=== PATIENT | female | born 1980 | race Caucasian/White ===

== ENCOUNTER → 2022-11-02 12:51 | Outpatient (CLI) | payer OTHER, SELFPAY ==
--- NOTE | 2022-11-02 12:55 | DI.MG.S_ITS ---
BILATERAL DIGITAL DIAGNOSTIC MAMMOGRAM 3D/2D: 11/02/2022 CLINICAL: Right breast lump. Comparison is made to exam dated: 11/02/[address] [facility]. Both breasts are heterogeneously dense, which may obscure small masses (category c / 51-75% glandular tissue). No significant masses, calcifications, or other findings are seen in either breast. No mass in the region of the palpable abnormality. (No mass was seen on proceeding targeted ultrasound). IMPRESSION: NEGATIVE There is no mammographic evidence of malignancy. A 1 year screening mammogram is recommended. Exam findings were conveyed to the patient. Patient is advised to monitor for significant change. Clinical follow-up as needed. Based on the Tyrer Cuzick model (a risk assessment model) the patient's lifetime risk is 10.7% and her 10 year risk is 1.3%. According to the ACR, ACS, and NCCN guidelines, an annual breast MRI exam along with mammogram is recommended if the patient's lifetime risk is 20% or greater. This exam was interpreted at Station ID: [id number]. NOTE: For mammograms, a report in lay terms will be sent to the patient. Approximately 15% of breast malignancies will not be visualized mammographically. In the management of a palpable breast mass, a negative mammogram must not discourage biopsy of a clinically suspicious lesion. Electronically Signed By: Boris Bar M.D. [facility] [place]/:11/02/2022 14:12:29 letter sent: Normal Exam ACR BI-RADS Category 1: Negative 3341F
--- NOTE | 2022-11-02 12:55 | DI.US.S_ITS ---
LIMITED ULTRASOUND OF RIGHT BREAST: 11/02/2022 CLINICAL: Palpable right breast lump. . No prior exams were available for comparison. Color flow and real-time ultrasound of the right breast 4 o'clock region were performed. Bocanegra scale images of the real-time examination were reviewed. No significant abnormalities were seen sonographically in the right breast. IMPRESSION: INCOMPLETE: NEEDS ADDITIONAL IMAGING EVALUATION No sonographic evidence of malignancy at the palpable site. No galactocele. Patient is currently . Exam findings were conveyed to the patient. Patient is advised to monitor for significant change. Clinical follow-up as needed. A mammogram is recommended and will immediately follow. This exam was interpreted at Station ID: [id number]. Electronically Signed By: Boris Bar M.D. [facility] [place]/:11/02/2022 13:26:42 letter sent: Additional Imaging Needed Ultrasound BI-RADS: 0 Indeterminate
== END ==
PROVIDERS: PCP Physician Assistant; Referring Provider Physician Assistant; Visit Provider Physician Assistant
DX: O92.29 Other disorders of breast associated with pregnancy and the puerperium (principal); N63.12 Unspecified lump in the right breast, upper inner quadrant; Z80.3 Family history of malignant neoplasm of breast
CPT/HCPCS: 76642; 77066; G0279

== ENCOUNTER → 2022-11-03 08:52 | Outpatient (CLI) | payer OTHER, SELFPAY ==
[2022-11-03 18:25] LABS: Add Manual Diff / Slide Review NO; Basophils Absolute Auto 100 /uL (0-100); Basophils Percent Auto 0.9 % (0-2); Eosinophils Absolute Auto 100 /uL (0-450); Eosinophils Percent Auto 0.9 % (2-4); Hematocrit 42.8 % (36-46); Hemoglobin 14.3 g/dL (12.0-16.0); Lymphocytes Absolute Auto 2000 /uL (1100-4500); Lymphocytes Percent Auto 31.1 % (25-40); Mean Corpuscular HGB Conc 33.5 % (30-36); Mean Corpuscular Hemoglobin 27.5 PG (26-34); Mean Corpuscular Volume 82.1 fL (80-100); Monocytes Absolute Auto 400 /uL (0-900); Neutrophils Absolute Auto 3800 /uL (1500-7000); Neutrophils Percent Auto 60.1 % (50-75); Platelet Count 334 X10^3/uL (150-400); Red Blood Cell Count 5.22 X10^6/uL (4.0-5.2); Red Cell Distribution Width 13.3 % (11.6-14.8); White Blood Cell Count 6.3 X10^3/uL (4.5-11.0)
[2022-11-03 18:32] LABS: Alanine Aminotransferase 24 IU/L (<35); Albumin 4.3 g/dL (3.5-5.0); Albumin Globulin Ratio 1.6 (1.0-2.8); Alkaline Phosphatase 101 U/L (38-126); Aspartate Aminotransferase 23 IU/L (14-36); BUN Creatinine Ratio 27.7 (6-22); Bilirubin Total 0.3 mg/dL (0.2-1.3); Blood Urea Nitrogen 18 mg/dL (7-17); Calcium 9.2 mg/dL (8.4-10.2); Carbon Dioxide 24 mmol/L (22-32); Chloride 105 mmol/L (98-107); Cholesterol 201 mg/dL (140-199); Estimated Glomerular Filt Rate > 60 mL/min (>60); Globulin 2.7 g/dL (1.7-4.1); Glucose 83 mg/dL (70-100); HDL Cholesterol 48 mg/dL (40-60); HEMOLYSIS < 15 (0-50); LDL Cholesterol Calculated 139 mg/dL (<100); Potassium 4.7 mmol/L (3.4-5.1); Sodium 138 mmol/L (137-145); Triglycerides 71 mg/dL (35-150)
[2022-11-03 21:18] LABS: TSH w/ Reflex to FT4 1.64 uIU/mL (0.47-4.68)
== END ==
PROVIDERS: PCP Physician Assistant; Visit Provider Physician Assistant
DX: E04.1 Nontoxic single thyroid nodule (principal); N63.12 Unspecified lump in the right breast, upper inner quadrant
CPT/HCPCS: 80053; 80061; 84443; 85025

== ENCOUNTER → 2023-01-20 12:07 | Outpatient (CLI) | payer OTHER, SELFPAY ==
--- NOTE | 2023-01-20 12:09 | DI.US.S_ITS ---
PROCEDURE: US THYROID INDICATIONS: follow up on thyroid nodule TECHNIQUE: Real-time scanning was performed of the thyroid gland, with image documentation. COMPARISON: None. FINDINGS: Right: Thyroid lobe measures 4.5 x 1.6 x 1.8 cm, and is homogeneous in echotexture. Left: Thyroid lobe measures 4.3 x 1.3 x 1.8 cm, and is homogenous in echotexture. Isthmus: 5 mm thick. Nodule number: 1 Location: Lower pole right thyroid lobe Size: 1.2 x 0.7 x 1.2 cm, previously 1.6 x 1 x 1.2 cm. Composition: Predominantly solid Echogenicity: Hypoechoic Shape: Wider than tall Margins: Smooth Echogenic foci: Non Total points: 4 ACR TI-RADS category: Moderately suspicious Nodule number: 2 Location: Mid pole left thyroid lobe Size: 0.5 x 0.4 x 0.4 cm, previously 0.4 x 0.4 x 0.4 cm. Composition: Cystic Echogenicity: Anechoic Shape: Wider than tall Margins: Smooth Echogenic foci: Punctate Total points: 3 ACR TI-RADS category: Mildly suspicious Nodule number: 3 Location: Lower pole left thyroid lobe Size: 0.3 x 0.2 x 0.3 cm, previously 0.3 x 0.2 x 0.2 cm. Composition: Cystic Echogenicity: Anechoic Shape: Wider than tall Margins: Smooth Echogenic foci: Punctate Total points: 3 ACR TI-RADS category: Mildly suspicious IMPRESSION: Bilateral mild to moderately suspicious thyroid nodules as above. Continued sonographic follow-up is recommended. ACR TI-RADS definitions and recommendations: TI-RADS 1 (benign): 0 points. FNA not needed. TI-RADS 2 (not suspicious): 2 points. FNA not needed. TI-RADS 3 (mildly suspicious): 3 points. * FNA if 2.5 cm or larger, follow up if 1.5 cm or larger (at 1, 3, and 5 years). TI-RADS 4 (moderately suspicious): 4-6 points. * FNA if 1.5 cm or larger, follow up if 1 cm or larger (at 1, 2, 3, and 5 years). TI-RADS 5 (highly suspicious): 7 points or more. * FNA if 1 cm or larger, follow up if 0.5 cm or larger (every year for 5 years). Dictated by: Shelton Torres M.D. on 01/20/2023 at 12:57 Approved by: Shelton Torres M.D. on 01/20/2023 at 13:26
== END ==
PROVIDERS: PCP Physician Assistant; Referring Provider Physician Assistant; Visit Provider Physician Assistant
DX: E04.2 Nontoxic multinodular goiter (principal)
CPT/HCPCS: 76536

== ENCOUNTER → 2023-12-18 15:32 | Outpatient (CLI) | payer OTHER, SELFPAY | PROVIDERS: PCP Physician Assistant; Visit Provider Physician Assistant | DX: J02.9 Acute pharyngitis, unspecified (principal) | CPT/HCPCS: 87070 ==

== ENCOUNTER → 2024-02-22 09:51 | Outpatient (CLI) | payer OTHER, SELFPAY ==
[2024-02-22 20:51] LABS: Add Manual Diff / Slide Review NO; Basophils Absolute Auto 100 /uL (0-100); Basophils Percent Auto 0.9 % (0-2); Eosinophils Absolute Auto 100 /uL (0-450); Eosinophils Percent Auto 0.9 % (2-4); Hemoglobin 14.5 g/dL (12.0-16.0); Lymphocytes Absolute Auto 2100 /uL (1100-4500); Lymphocytes Percent Auto 36.4 % (25-40); Mean Corpuscular HGB Conc 32.9 % (30-36); Mean Corpuscular Hemoglobin 27.5 PG (26-34); Mean Corpuscular Volume 83.7 fL (80-100); Monocytes Absolute Auto 400 /uL (0-900); Monocytes Percent Auto 6.4 % (3-14); Neutrophils Absolute Auto 3200 /uL (1500-7000); Neutrophils Percent Auto 55.4 % (50-75); Platelet Count 283 X10^3/uL (150-400); Red Blood Cell Count 5.25 X10^6/uL (4.0-5.2); Red Cell Distribution Width 14.1 % (11.6-14.8); White Blood Cell Count 5.8 X10^3/uL (4.5-11.0)
[2024-02-22 22:05] LABS: Alanine Aminotransferase 21 IU/L (<35); Albumin 4.2 g/dL (3.5-5.0); Albumin Globulin Ratio 1.5 (1.0-2.8); Alkaline Phosphatase 74 U/L (38-126); Aspartate Aminotransferase 26 IU/L (14-36); BUN Creatinine Ratio 18.2 (6-22); Bilirubin Total 0.6 mg/dL (0.2-1.3); Blood Urea Nitrogen 12 mg/dL (7-17); Calcium 9.9 mg/dL (8.4-10.2); Carbon Dioxide 27 mmol/L (22-32); Chloride 105 mmol/L (98-107); Cholesterol 199 mg/dL (140-199); Estimated Glomerular Filt Rate > 60 mL/min (>60); Globulin 2.8 g/dL (1.7-4.1); Glucose 90 mg/dL (70-100); HDL Cholesterol 51 mg/dL (40-60); HEMOLYSIS < 15 (0-50); LDL Cholesterol Calculated 123 mg/dL (<100); Potassium 4.2 mmol/L (3.4-5.1); Sodium 137 mmol/L (137-145); Triglycerides 127 mg/dL (35-150)
[2024-02-22 22:21] LABS: Free T3, Triiodothyronine Free 4.65 pg/mL (2.77-5.27)
[2024-02-22 22:35] LABS: TSH w/ Reflex to FT4 2.03 uIU/mL (0.47-4.68)
== END ==
PROVIDERS: PCP Physician Assistant; Visit Provider Physician Assistant Medical
DX: Z13.6 Encounter for screening for cardiovascular disorders (principal); E04.1 Nontoxic single thyroid nodule; E78.00 Pure hypercholesterolemia, unspecified; Z80.8 Family history of malignant neoplasm of other organs or systems
CPT/HCPCS: 80053; 80061; 84443; 84481; 85025

== ENCOUNTER → 2024-02-28 13:28 | Outpatient (CLI) | payer OTHER, SELFPAY ==
[2024-03-01 12:49] LABS: Fecal Immunochemical Test Negative (Negative)
== END ==
PROVIDERS: PCP Physician Assistant; Visit Provider Physician Assistant
DX: R19.7 Diarrhea, unspecified (principal); R10.9 Unspecified abdominal pain
CPT/HCPCS: 82274; 87177

== ENCOUNTER → 2024-02-29 10:59 | Outpatient (CLI) | payer OTHER, SELFPAY ==
[2024-02-29 19:41] LABS: Erythrocyte Sedimentation Rate 1 MM/HR (0-20)
[2024-02-29 20:43] LABS: Amylase 63 U/L (30-110); Lipase 114 U/L (23-300)
[2024-03-02 21:15] LABS: Anti Thyroglobulin Antibody <1.0 IU/mL (0.0-0.9); Thyroid Peroxidase Antibodies <9 IU/mL (0-34)
== END ==
PROVIDERS: PCP Physician Assistant; Visit Provider Physician Assistant
DX: E04.1 Nontoxic single thyroid nodule (principal); E78.00 Pure hypercholesterolemia, unspecified; R19.7 Diarrhea, unspecified
CPT/HCPCS: 82150; 83690; 85651; 86376; 86800

== ENCOUNTER → 2024-04-12 13:15 | Outpatient (CLI) | payer OTHER, SELFPAY ==
--- NOTE | 2024-04-12 13:16 | DI.US.S_ITS ---
PROCEDURE: US THYROID INDICATIONS: NODULES TECHNIQUE: Real-time scanning was performed of the thyroid gland, with image documentation. COMPARISON: [facility], US, US THYROID, 01/20/2023, 12:18. FINDINGS: Thyroid: Right lobe measures 5.2 x 2.0 x 2.0 cm. Left lobe measures 5.0 x 1.5 x 1.6 cm. Isthmus is 0.6 cm thick. Echotexture is mildly heterogeneous. Nodule number: 1 Location: Lower pole right thyroid lobe Size: 1.5 x 0.9 x 1.3 cm, previously 1.2 x 0.7 x 1.2 cm Composition: Predominantly solid Echogenicity: Isoechoic Shape: Wider than tall Margins: Smooth Echogenic foci: None Total points: 3 ACR TI-RADS category: Mildly suspicious 4 and 5 mm colloid cysts are noted in upper and lower pole of left thyroid lobe. No solid left thyroid lobe nodule is seen. IMPRESSION: 1. Interval slight increase in size of patient's known mildly suspicious nodule in lower pole right thyroid lobe. Continue ultrasound follow-up is recommended. 2. Sub 5 mm colloid cysts in left thyroid lobe. ACR TI-RADS definitions and recommendations: TI-RADS 1 (benign): 0 points. FNA not needed. TI-RADS 2 (not suspicious): 2 points. FNA not needed. TI-RADS 3 (mildly suspicious): 3 points. * FNA if 2.5 cm or larger, follow up if 1.5 cm or larger (at 1, 3, and 5 years). TI-RADS 4 (moderately suspicious): 4-6 points. * FNA if 1.5 cm or larger, follow up if 1 cm or larger (at 1, 2, 3, and 5 years). TI-RADS 5 (highly suspicious): 7 points or more. * FNA if 1 cm or larger, follow up if 0.5 cm or larger (every year for 5 years). Dictated by: Shelton Torres M.D. on 04/12/2024 at 15:18 Approved by: Shelton Torres M.D. on 04/12/2024 at 15:31
--- NOTE | 2024-04-12 13:16 | DI.MG.S_ITS ---
BILATERAL DIGITAL SCREENING MAMMOGRAM 3D/2D WITH CAD: 04/12/2024 CLINICAL: Routine screening. Family history of breast cancer. Comparison is made to exams dated: 11/02/2022 mammogram and 11/02/2022 [facility]. Both breasts are heterogeneously dense, which may obscure small masses (category c / 51-75% glandular tissue). Current study was also evaluated with a Computer Aided Detection (CAD) system. No significant masses, calcifications, or other findings are seen in either breast. There has been no significant interval change. IMPRESSION: NEGATIVE There is no mammographic evidence of malignancy. A 1 year screening mammogram is recommended. Based on the Tyrer Cuzick model (a risk assessment model) the patient's lifetime risk is 11.0% and her 10 year risk is 1.5%. According to the ACR, ACS, and NCCN guidelines, an annual breast MRI exam along with mammogram is recommended if the patient's lifetime risk is 20% or greater. This exam was interpreted at Station ID: [id number]. NOTE: For mammograms, a report in lay terms will be sent to the patient. Approximately 15% of breast malignancies will not be visualized mammographically. In the management of a palpable breast mass, a negative mammogram must not discourage biopsy of a clinically suspicious lesion. Electronically Signed By: Percy espinoza/bj:04/12/2024 15:06:30 letter sent: Normal Exam ACR BI-RADS Category 1: Negative 3341F
== END ==
PROVIDERS: PCP Physician Assistant; Referring Provider Physician Assistant; Visit Provider Physician Assistant
DX: Z12.31 Encounter for screening mammogram for malignant neoplasm of breast (principal); Z80.3 Family history of malignant neoplasm of breast; R92.333 Mammographic heterogeneous density, bilateral breasts; E04.1 Nontoxic single thyroid nodule; Z80.8 Family history of malignant neoplasm of other organs or systems
CPT/HCPCS: 76536; 77063; 77067

== ENCOUNTER 2024-05-20 14:10 | Emergency (ER) | payer OTHER, SELFPAY ==
[2024-05-20 14:25] VITALS: BP 137/93; PULSE 90; RESP 16; TEMP 36.9; O2SAT 98; BMI 26.5
[2024-05-20] MEDS: ONDANSETRON 4 MG/2 ML INJ IV ×2 (14:40→16:58)
[2024-05-20 15:03] LABS: Add Manual Diff / Slide Review NO; Basophils Absolute Auto 0 /uL (0-100); Basophils Percent Auto 0.5 % (0-2); Eosinophils Absolute Auto 0 /uL (0-450); Eosinophils Percent Auto 0.2 % (2-4); Hematocrit 45.8 % (36-46); Hemoglobin 15.4 g/dL (12.0-16.0); Lymphocytes Absolute Auto 1900 /uL (1100-4500); Mean Corpuscular HGB Conc 33.5 % (30-36); Mean Corpuscular Hemoglobin 27.2 PG (26-34); Mean Corpuscular Volume 81.2 fL (80-100); Monocytes Absolute Auto 500 /uL (0-900); Monocytes Percent Auto 6.1 % (3-14); Neutrophils Absolute Auto 5700 /uL (1500-7000); Neutrophils Percent Auto 70.2 % (50-75); Platelet Count 284 X10^3/uL (150-400); Red Blood Cell Count 5.65 X10^6/uL (4.0-5.2); Red Cell Distribution Width 13.2 % (11.6-14.8); White Blood Cell Count 8.1 X10^3/uL (4.5-11.0)
[2024-05-20 15:10] LABS: Alanine Aminotransferase 24 IU/L (<35); Albumin Globulin Ratio 1.5 (1.0-2.8); Alkaline Phosphatase 81 U/L (38-126); Aspartate Aminotransferase 29 IU/L (14-36); Bilirubin Total 0.6 mg/dL (0.2-1.3); Blood Urea Nitrogen 13 mg/dL (7-17); Calcium 9.8 mg/dL (8.4-10.2); Carbon Dioxide 21 mmol/L (22-32); Chloride 107 mmol/L (98-107); Estimated Glomerular Filt Rate > 60 mL/min (>60); Globulin 3.3 g/dL (1.7-4.1); Glucose 91 mg/dL (70-100); HEMOLYSIS 19 (0-50); Lipase 70 U/L (23-300); Sodium 138 mmol/L (137-145); Total Protein 8.3 g/dL (6.3-8.2)
--- NOTE | 2024-05-20 15:33 | ED.ABDPAIN ---
HPI - Abdominal Pain <Liana Youssef PA-C - Last Filed: 05/20/24 17:10> General Chief Complaint: Abdominal Pain Stated Complaint: poss overian cyst rupture, fever Time Seen by Provider: 05/20/24 15:07 Source: patient Mode of arrival: Ambulatory History of Present Illness HPI narrative: 43-year-old female with past medical history hypercholesterolemia, major depression, thyroid nodule presents to the ED with 3 days of right lower quadrant pain. Patient states that the pain started right after intercourse, she had some mild spotting followed by the pain. Patient's last menstrual period was 10 days ago. Patient endorses pain in the suprapubic and right lower quadrant. Patient endorses nausea, denies vomiting. Patient has had a cholecystectomy and no other abdominal surgeries. Patient denies chest pain, shortness of breath, fever, chills, dysuria. Last bowel movement was this morning without hematochezia or melena. Related Data Previous Rx's Medication Instructions Recorded fluticasone propionate 50 1 spray intranasal BID #16 grams 03/23/23 mcg/actuation nasal spray,suspension (Flonase Allergy Relief) Allergies Allergy/AdvReac Type Severity Reaction Status Date / Time aspirin Allergy Intermediate Verified 05/20/24 14:25 Penicillins Allergy Intermediate Verified 05/20/24 14:25 amoxicillin Allergy Intermediate Uncoded 02/28/24 08:29 Escitalopram AdvReac Intermediate Nausea Uncoded 02/28/24 18:13 Review of Systems <Liana Youssef PA-C - Last Filed: 05/20/24 17:10> Constitutional Constitutional: Denies chills, Denies fatigue, Denies fever(s), Denies frequent falls, Denies lethargy and Denies weakness Eyes Eyes: Denies change in vision, Denies eye discharge, Denies irritation and Denies loss of vision ENT Ears, Nose, Mouth, and Throat: Denies change in voice, Denies dizziness, Denies neck pain, Denies sore throat and Denies throat swelling Cardiovascular Cardiovascular: Denies chest pain, Denies irregular heart rhythm, Denies lightheadedness, Denies palpitations, Denies dyspnea, Denies dyspnea on exertion and Denies orthopnea Respiratory Respiratory: Denies cough, Denies dyspnea, Denies dyspnea on exertion and Denies wheezing Gastrointestinal Gastrointestinal: Reports abdominal pain, Denies change in bowel habits, Denies diarrhea, Reports nausea and Denies vomiting Genitourinary Genitourinary: Reports metrorrhagia Musculoskeletal Musculoskeletal: Denies neck pain and Denies numbness Integumentary/Breasts Skin/Breast: Denies pruritus, Denies erythema, Denies rash and Denies wounds Neurologic Neurologic: Denies behavioral changes, Denies confusion, Denies dizziness, Denies frequent falls, Denies loss of vision, Denies numbness and Denies weakness Psychiatric Psychiatric: Denies anxiety, Denies behavioral changes, Denies confusion, Denies depression, Denies homicidal ideation and Denies suicidal ideation Endocrine Endocrine: Denies fatigue, Denies flushing and Denies palpitations Hematologic/Lymphatic Hematologic/Lymphatic: Denies easy bruising Allergic/Immunologic Allergic/Immunologic: Denies urticaria, Denies throat swelling and Denies wheezing Patient History <Liana Youssef PA-C - Last Filed: 05/20/24 17:10> Medical History Family history of breast cancer Breast cancer screening Acute maxillary sinusitis Breast mass Surgical History Anesthesia History of cholecystectomy (~2000) History of knee surgery Family History Father History of heart disease Hypertension Hyperlipidemia Mother Cancer Grandfather Cancer Grandmother Stroke Grandfather History of heart disease Grandmother Stroke Social History Smoking Status: Never smoker Smoking Status: Never smoker alcohol intake frequency: holidays/special occasions only Substance Use Type: does not use Exam <Liana Youssef PA-C - Last Filed: 05/20/24 17:10> Narrative Exam Narrative: Const General:?cooperative, healthy appearing and comfortable [facility] Head:?normal to inspection Ears:?hearing grossly normal bilaterally Nose:?external nose normal Face and sinus:?normal facial exam and sinuses nontender Mouth:?oral mucosae normal Throat:?posterior oropharynx normal Eyes General:?appearance normal, both eyes and all related structures Neck Neck:?normal visual inspection and no lymphadenopathy noted Resp Effort & Inspection:?normal respiratory effort Auscultation:?clear to auscultation bilaterally Cardio Rate:?regular rate Rhythm:?regular rhythm GI Abdomen is soft, nondistended. Abdomen is tender to palpation in the right lower quadrant and suprapubic regions. No CVA tenderness. Neuro General:?patient alert, patient awake and patient oriented x3 Initial Vital Signs Initial Vital Signs: Vital Signs Temperature 98.5 F 05/20/24 14:25 Pulse Rate 90 05/20/24 14:25 Respiratory Rate 16 05/20/24 14:25 Blood Pressure 137/93 H 05/20/24 14:25 Pulse Oximetry 98 05/20/24 14:25 Oxygen Delivery Method Room Air 05/20/24 14:25 <Thomas Byrd DO - Last Filed: 05/20/24 17:12> Initial Vital Signs Initial Vital Signs: Vital Signs Temperature 98.5 F 05/20/24 14:25 Pulse Rate 90 05/20/24 14:25 Respiratory Rate 16 05/20/24 14:25 Blood Pressure 137/93 H 05/20/24 14:25 Pulse Oximetry 98 05/20/24 14:25 Oxygen Delivery Method Room Air 05/20/24 14:25 Course <Liana Youssef PA-C - Last Filed: 05/20/24 17:10> Orders Ordered: ED Orders 05/20/24 14:45 Complete Blood Count AUTO DIFF Stat Comprehensive Metabolic Panel Stat Lipase Stat 05/20/24 15:40 CT abdomen pelvis w con Stat US pelvic complete Stat Ondansetron HCl (Ondansetron 4 Mg/2 Ml Inj) 4 mg IV NOW PRN PRN Reason: Nausea And Vomiting Last Admin: 05/20/24 14:40 Dose: 4 mg Documented By: WINSTON Discontinued Medications Ketorolac Tromethamine (Ketorolac 30 Mg/Ml Vial) 15 mg IV NOW ONE Stop: 05/20/24 15:42 Last Admin: 05/20/24 15:44 Dose: Not Given Documented By: RB Morphine Sulfate (Morphine 4 Mg/Ml Inj) 4 mg IV NOW ONE Stop: 05/20/24 15:44 Last Admin: 05/20/24 15:47 Dose: 4 mg Documented By: RB Ondansetron HCl (Ondansetron 4 Mg/2 Ml Inj) 4 mg IV NOW ONE Stop: 05/20/24 16:54 Last Admin: 05/20/24 16:58 Dose: 4 mg Documented By: RB Vital Signs Vital signs: Vital Signs - 8 hr 05/20/24 14:25 Temperature 98.5 F Pulse Rate 90 Respiratory Rate 16 Blood Pressure 137/93 H Pulse Oximetry 98 Oxygen Delivery Method Room Air <Thomas Byrd DO - Last Filed: 05/20/24 17:12> Orders Ordered: ED Orders 05/20/24 14:45 Complete Blood Count AUTO DIFF Stat Comprehensive Metabolic Panel Stat Lipase Stat 05/20/24 15:40 CT abdomen pelvis w con Stat US pelvic complete Stat Ondansetron HCl (Ondansetron 4 Mg/2 Ml Inj) 4 mg IV NOW PRN PRN Reason: Nausea And Vomiting Last Admin: 05/20/24 14:40 Dose: 4 mg Documented By: WINSTON Discontinued Medications Ketorolac Tromethamine (Ketorolac 30 Mg/Ml Vial) 15 mg IV NOW ONE Stop: 05/20/24 15:42 Last Admin: 05/20/24 15:44 Dose: Not Given Documented By: RB Morphine Sulfate (Morphine 4 Mg/Ml Inj) 4 mg IV NOW ONE Stop: 05/20/24 15:44 Last Admin: 05/20/24 15:47 Dose: 4 mg Documented By: RB Ondansetron HCl (Ondansetron 4 Mg/2 Ml Inj) 4 mg IV NOW ONE Stop: 05/20/24 16:54 Last Admin: 05/20/24 16:58 Dose: 4 mg Documented By: RB Vital Signs Vital signs: Vital Signs - 8 hr 05/20/24 14:25 Temperature 98.5 F Pulse Rate 90 Respiratory Rate 16 Blood Pressure 137/93 H Pulse Oximetry 98 Oxygen Delivery Method Room Air MDM - Abdominal Pain <Liana Youssef PA-C - Last Filed: 05/20/24 17:10> Lab Data 05/20/24 14:45 05/20/24 14:45 Labs: Lab Results 05/20/24 Range/Units 14:45 WBC 8.1 (4.5-11.0) X10^3/uL RBC 5.65 H (4.0-5.2) X10^6/uL Hgb 15.4 (12.0-16.0) g/dL Hct 45.8 (36-46) % MCV 81.2 (80-100) fL MCH 27.2 (26-34) PG MCHC 33.5 (30-36) % RDW 13.2 (11.6-14.8) % Plt Count 284 (150-400) X10^3/uL Neut % (Auto) 70.2 (50-75) % Lymph % (Auto) 23.0 L (25-40) % Sampson % (Auto) 6.1 (3-14) % Eos % (Auto) 0.2 L (2-4) % Baso % (Auto) 0.5 (0-2) % Neut # (Auto) 5700 (7440-5459) /uL Lymph # (Auto) 1900 (6672-5016) /uL Sampson # (Auto) 500 (0-900) /uL Eos # (Auto) 0 (0-450) /uL Baso # (Auto) 0 (0-100) /uL Sodium 138 (137-145) mmol/L Potassium 4.0 (3.4-5.1) mmol/L Chloride 107 (98-107) mmol/L Carbon Dioxide 21 L (22-32) mmol/L BUN 13 (7-17) mg/dL Creatinine 0.62 (0.52-1.04) mg/dL Estimated GFR > 60 (>60) mL/min BUN/Creatinine Ratio 21.0 (6-22) Glucose 91 (70-100) mg/dL Calcium 9.8 (8.4-10.2) mg/dL Total Bilirubin 0.6 (0.2-1.3) mg/dL AST 29 (14-36) IU/L ALT 24 (<35) IU/L Alkaline Phosphatase 81 (38-126) U/L Total Protein 8.3 H (6.3-8.2) g/dL Albumin 5.0 (3.5-5.0) g/dL Globulin 3.3 (1.7-4.1) g/dL Albumin/Globulin Ratio 1.5 (1.0-2.8) Lipase 70 (23-300) U/L Point of care testing: Point of Care Testing Test Results Negative Urine Dip Bedside Urine Glucose Negative Bedside Urine Bilirubin - Negative Bedside Urine Ketone ++ 40 Urine Specific [place] 1.015 Bedside Urine Occult Blood - Negative Bedside Urine pH 6.0 Bedside Urine Protein - Negative Bedside Urine Urobilinogen - Negative Bedside Urine Nitrite - Negative Bedside Urine Leukocytes - Negative Esterase MDM Narrative Medical decision making narrative: 43-year-old female with past medical history hypercholesterolemia, major depression, thyroid nodule presents to the ED with 3 days of right lower quadrant pain. Concern for versus ectopic versus ruptured ovarian cyst versus ovarian torsion versus appendicitis versus UTI versus other intra-abdominal pathology versus other. Will obtain labs, lipase, UA, CT abdomen pelvis, pelvic ultrasound. Will give morphine, Zofran for symptoms. Will reassess. Labs within normal limits. UA without UTI. test negative. Pelvic ultrasound without acute findings. CT shows that the appendix is normal. There is a cystic structure in the retroperitoneal base measuring 1.9 by 1.4 cm. Indeterminate etiology but no internal complexity favors a benign lesion. Radiology recommend six-month follow-up with CT. Fecal debris within the small bowel usually indicating small intestinal bacterial overgrowth versus slow transit. There is also an indeterminate lesion of the central liver measuring 1.8 cm, most likely a hemangioma versus malignant pathologies including focal nodular hyperplasia, adenoma or hepatocellular carcinoma. Radiology recommends outpatient MRI with contrast for complete characterization. Patient's symptoms improved with medications. Discussed findings with patient. Patient agrees to follow-up with GI as soon as possible. ED return precautions discussed with patient. Patient verbalized understanding. Medical records reviewed: Yes <Thomas Byrd, - Last Filed: 05/20/24 17:12> Lab Data Labs: Lab Results 05/20/24 Range/Units 14:45 WBC 8.1 (4.5-11.0) X10^3/uL RBC 5.65 H (4.0-5.2) X10^6/uL Hgb 15.4 (12.0-16.0) g/dL Hct 45.8 (36-46) % MCV 81.2 (80-100) fL MCH 27.2 (26-34) PG MCHC 33.5 (30-36) % RDW 13.2 (11.6-14.8) % Plt Count 284 (150-400) X10^3/uL Neut % (Auto) 70.2 (50-75) % Lymph % (Auto) 23.0 L (25-40) % Sampson % (Auto) 6.1 (3-14) % Eos % (Auto) 0.2 L (2-4) % Baso % (Auto) 0.5 (0-2) % Neut # (Auto) 5700 (0121-2880) /uL Lymph # (Auto) 1900 (7789-0969) /uL Sampson # (Auto) 500 (0-900) /uL Eos # (Auto) 0 (0-450) /uL Baso # (Auto) 0 (0-100) /uL Sodium 138 (137-145) mmol/L Potassium 4.0 (3.4-5.1) mmol/L Chloride 107 (98-107) mmol/L Carbon Dioxide 21 L (22-32) mmol/L BUN 13 (7-17) mg/dL Creatinine 0.62 (0.52-1.04) mg/dL Estimated GFR > 60 (>60) mL/min BUN/Creatinine Ratio 21.0 (6-22) Glucose 91 (70-100) mg/dL Calcium 9.8 (8.4-10.2) mg/dL Total Bilirubin 0.6 (0.2-1.3) mg/dL AST 29 (14-36) IU/L ALT 24 (<35) IU/L Alkaline Phosphatase 81 (38-126) U/L Total Protein 8.3 H (6.3-8.2) g/dL Albumin 5.0 (3.5-5.0) g/dL Globulin 3.3 (1.7-4.1) g/dL Albumin/Globulin Ratio 1.5 (1.0-2.8) Lipase 70 (23-300) U/L Point of care testing: Point of Care Testing Test Results Negative Urine Dip Bedside Urine Glucose Negative Bedside Urine Bilirubin - Negative Bedside Urine Ketone ++ 40 Urine Specific [place] 1.015 Bedside Urine Occult Blood - Negative Bedside Urine pH 6.0 Bedside Urine Protein - Negative Bedside Urine Urobilinogen - Negative Bedside Urine Nitrite - Negative Bedside Urine Leukocytes - Negative Esterase Discharge Plan Departure Prescriptions: No Action fluticasone propionate [Flonase Allergy Relief] 50 mcg/actuation spray,suspension 1 spray intranasal BID Qty: 16 0RF Rx Instructions: administer into each nostril Referrals: Stefany Ulloa PA-C [Primary Care Provider] - ED Sign-out <Thomas Byrd DO - Last Filed: 05/20/24 17:12> Cosign ED Attending Cosignature Attestation: Dr Byrd Co-Sign Statement: I was available for consultation during this patient's emergency department visit. This chart is signed by myself for administrative purposes only. I did not have direct contact with this patient during this visit. They were seen independently by the APC.
--- NOTE | 2024-05-20 15:40 | DI.CT.S_ITS ---
PROCEDURE: CT ABDOMEN PELVIS W CON INDICATIONS: RLQ pain TECHNIQUE: After the administration of intravenous contrast, axial sections acquired from the lung bases to the pubic symphysis. Coronal and sagittal reformats were performed. For radiation dose reduction, the following was used: automated exposure control, adjustment of mA and/or kV according to patient size. COMPARISON: None. FINDINGS: Image quality: Diagnostic. Lower Chest: No significant findings. ABDOMEN: Liver: 1.8 centimeter lesion with indeterminate attenuation adjacent to the IVC in the caudate lobe (series 2, image 13). Gallbladder: Absent. Biliary ducts: No biliary dilation. Pancreas: No ductal dilation. Spleen: Size is within normal limits. Adrenal Glands: No adrenal nodules. Kidneys and Ureters: No hydronephrosis. No solid mass. No complex renal cystic lesion which requires follow up. Stomach and Bowel: Normal colonic caliber, without significant wall thickening. Normal appendix. No significant diverticular disease. Fecal debris within the small bowel. Peritoneum: No abnormal intraperitoneal fluid. No free air. Ventral Wall: No significant ventral hernia. Abdominal Nodes: No retroperitoneal or mesenteric adenopathy by size criteria. Retroperitoneal cystic structure measuring 1.9 x 1.4 centimeter (series 2, image 38). Vessels: Aorta and inferior vena cava are normal in size. PELVIS: Pelvic Organs: Left-sided corpus luteum. Symmetric size of the ovaries. Bladder: No bladder wall thickening, accounting for underdistention. Pelvic Nodes: No enlarged lymph nodes. Miscellaneous: No inguinal hernias are seen. Bones: No aggressive osseous abnormality. IMPRESSION: No findings to explain the patient's right lower quadrant pain. Symmetric size of the ovaries. Normal appendix. No diverticular disease. Indeterminate lesion of the central liver measuring 1.8 centimeters. In this age group, a hemangioma is favored over other benign and malignant pathologies including focal nodular hyperplasia, adenoma or hepatocellular carcinoma. Consider outpatient MRI with contrast for complete characterization. Cystic structure in the retroperitoneal space measuring 1.9 x 1.4 centimeter. Indeterminate etiology but no internal complexity favors a benign lesion. Six-month follow-up with CT should be considered, if prior exams are not available for comparison. Fecal debris within the small-bowel, usually indicating small intestinal bacterial overgrowth versus slow transit. Dictated by: Pastor Mccormick M.D. on 05/20/2024 at 16:11 Approved by: Pastor Mccormick M.D. on 05/20/2024 at 16:18
--- NOTE | 2024-05-20 15:40 | DI.US.S_ITS ---
PROCEDURE: US PELVIC COMPLETE INDICATIONS: PAIN TECHNIQUE: Real-time scanning was performed of the pelvic organs, with image documentation. Additional endovaginal scanning was necessary due to incomplete visualization of the adnexal and endometrial structures by transabdominal scanning. Color and spectral Doppler of the ovaries was performed. COMPARISON: None. FINDINGS: Uterus: Uterus is anteverted and normal in size at 8.4 x 4.1 x 5.4 cm. The myometrium is homogeneous. The endometrium measures 13 mm combined thickness. Ovaries: The right ovary measures 2.7 x 2.5 x 1.6 cm, with a calculated ovarian volume of 6 cc. The left ovary measures 1.8 x 2.9 x 1.8 cm, with a calculated ovarian volume of 5 cc. The ovaries have a normal sonographic appearance. Less than 12 follicles can be seen in each ovary. No adnexal masses are seen. Normal arterial waveforms of the ovaries. Other: No pathologic free abdominal or pelvic fluid. IMPRESSION: Normal pelvic ultrasound. Normal arterial waveforms of the ovaries, without ovarian enlargement to suggest torsion. We strive to produce accurate, complete, and clear reports of imaging services. To assist us in improving patient care, this report was composed using standard report templates and voice recognition software. Therefore, it may contain abnormal punctuation, insertions and/or omissions. Occasional wrong-word or sound-alike substitutions may occur. Though we review the report and make efforts to correct it, we do recommend that the report be read carefully in proper context to recognize any text inaccuracies. Dictated by: Pastor Mccormick M.D. on 05/20/2024 at 16:36 Approved by: Pastor Mccormick M.D. on 05/20/2024 at 16:37
[2024-05-20] MEDS: MORPHINE 4 MG/ML INJ IV (15:47)
[2024-05-20 18:17] VITALS: BP 142/87; PULSE 88; RESP 18; TEMP 36.8; O2SAT 97
== END 2024-05-20 18:18 | disposition home or self-care (01) ==
PROVIDERS: Emergency Medicine; Emergency Provider Student in an Organized Health Care Education/Training Program; PCP Physician Assistant
DX: R10.31 Right lower quadrant pain (principal)
CPT/HCPCS: 36415; 74177; 76830; 76856; 80053; 81003; 81025; 83690; 85025; 93975; 96374; 96375; 96376; 99284; J2270; J2405; Q9967

== ENCOUNTER → 2024-06-13 13:30 | Outpatient (CLI) | payer OTHER, SELFPAY ==
--- NOTE | 2024-06-13 13:31 | DI.MRI.S_ITS ---
PROCEDURE: MR ABDOMEN WO/W CON INDICATIONS: Central liver lesion needs further eval TECHNIQUE: Coronal HASTE, axial 2D FLASH in- and [id number]; axial breath-hold T2 FSE. Dynamic axial VIBE during the administration of contrast; post-contrast coronal VIBE or 2D FLASH with fat saturation from the hepatic dome to the iliac crests. Optional diffusion weighted imaging and ADC may be performed. COMPARISON: [facility], CT, CT ABDOMEN PELVIS W CON, 05/20/2024, 15:48. FINDINGS: Image quality: Diagnostic. Lung bases: Unremarkable. Liver: The lesion at the dome of the liver measures 1.3 cm, without enhancement. This demonstrates T2 intermediate signal, with T2 shine through. This does not retain contrast on the hepatobiliary phase. Gallbladder: Absent. Biliary ducts: No biliary dilation. Pancreas: No ductal dilation. Spleen: Size is within normal limits. Adrenal Glands: No adrenal nodules. Kidneys and Ureters: No hydronephrosis. No solid mass. No complex renal cystic lesion which requires follow up. Stomach and Bowel: Normal colonic caliber, without significant wall thickening. Peritoneum: No abnormal intraperitoneal fluid. No free air. Retroperitoneal cyst without complex features measuring 1.4 cm. Ventral Wall: No hernia. Abdominal Nodes: No retroperitoneal or mesenteric adenopathy by size criteria. Vessels: Aorta and inferior vena cava are normal in size. Bones: No aggressive osseous abnormality. IMPRESSION: Previously described liver lesion at the dome of the liver has benign imaging characteristics, most consistent with a cyst. Retroperitoneal cyst without complex features measuring 1.4 cm. Differential is broad, including retroperitoneal lymphatic malformation, cystic teratoma, pseudocyst, less likely a retroperitoneal mucinous cystadenoma or other malignancies. Imaging surveillance should be considered at [address] Dictated by: Pastor Mccormick M.D. on 06/13/2024 at 14:56 Approved by: Pastor Mccormick M.D. on 06/13/2024 at 15:08
== END ==
PROVIDERS: PCP Physician Assistant; Referring Provider Physician Assistant; Visit Provider Physician Assistant
DX: K76.9 Liver disease, unspecified (principal); K68.9 Other disorders of retroperitoneum; R93.5 Abnormal findings on diagnostic imaging of other abdominal regions, including retroperitoneum; R14.0 Abdominal distension (gaseous); Z90.49 Acquired absence of other specified parts of digestive tract
CPT/HCPCS: 74183; A9579

== ENCOUNTER → 2024-10-10 09:05 | Outpatient (CLI) | payer OTHER, SELFPAY ==
--- NOTE | 2024-10-10 09:07 | DI.MRI.S_ITS ---
PROCEDURE: MR ENTEROGRAPHY PROTOCOL INDICATIONS: Crohn's disease suspected TECHNIQUE: After the ingestion of oral contrast, coronal and axial HASTE, coronal 2-D FLASH in-and [id number] sequences. After the administration of contrast, coronal and axial VIBE or 2-D FLASH with fat saturation sequences acquired through the abdomen and pelvis. Optional diffusion weighted imaging and ADC may be performed. COMPARISON: [facility], MR, MR ABDOMEN WO/W CON, 06/13/2024, 13:45. [facility], CT, CT ABDOMEN PELVIS W CON, 05/20/2024, 15:48. FINDINGS: Image quality: Excellent. Bowel and peritoneum: Stomach is partially decompressed. No suspicious morphology or mucosal enhancement. Small bowel loops demonstrate normal caliber and wall thickness. Active peristalsis is seen. No significant mesenteric fat proliferation and no suspicious mural enhancement. Terminal ileum appears normal. The appendix is normal. No focal areas of stricture or fistula. Normal stool burden throughout the colon. No suspicious colon wall thickening. No interloop fluid collections. Lung bases: Unremarkable. Liver: No solid mass. 1.5 cm bilobed T2 hyperintense lesion in the pericaval segment eight. Postcontrast, this demonstrates gradual wash-in. The liver is otherwise normal in size and signal. Gallbladder: Absent. Biliary ducts: No biliary dilation. No evidence of PSC. Pancreas: No ductal dilation. Spleen: Size is within normal limits. Adrenal Glands: No adrenal nodules. Kidneys and Ureters: No hydronephrosis. No solid mass. No complex renal cystic lesion which requires follow up. Peritoneum: No abnormal intraperitoneal fluid. Ventral Wall: No hernia. Abdominal Nodes: Periaortic cystic structure at a mid abdominal level measuring 1.8 x 1.5 cm, 18/32, present on the prior exam and nonenhancing. No other retroperitoneal or mesenteric masses, cysts, or adenopathy. Vessels: The abdominal aorta, IVC, and portal vein are of normal caliber. Pelvis: Normal uterus and ovaries. The urinary bladder demonstrates normal wall thickness. Pelvic vasculature and lymph nodes are normal. Bones: No aggressive osseous abnormality. IMPRESSION: No MR evidence of acute or chronic inflammatory bowel disease. Post cholecystectomy. Incidental note of probable lymphocele in the left retroperitoneum and probable hepatic hemangioma near the liver dome. Dictated by: Nancy Glass M.D. on 10/10/2024 at 13:49 Approved by: Nancy Glass M.D. on 10/10/2024 at 14:19
== END ==
PROVIDERS: PCP Physician Assistant; Referring Provider Physician Assistant; Visit Provider Physician Assistant
DX: R19.7 Diarrhea, unspecified (principal); R14.0 Abdominal distension (gaseous); R10.31 Right lower quadrant pain; R11.0 Nausea; Z90.49 Acquired absence of other specified parts of digestive tract
CPT/HCPCS: 72197; 74183; A9579

== ENCOUNTER → 2025-01-17 09:00 | Outpatient (CLI) | payer OTHER, SELFPAY ==
--- NOTE | 2025-01-17 09:01 | DI.US.S_ITS ---
PROCEDURE: US THYROID INDICATIONS: RIGHT INFERIOR THYROID NODULE FOLLOW UP TECHNIQUE: Real-time scanning was performed of the thyroid gland, with image documentation. COMPARISON: [facility], US, US THYROID, 04/12/2024, 14:45. FINDINGS: Thyroid: Right lobe measures 6.1 x 2.4 x 1.7 cm. Left lobe measures 5.2 x 1.7 x 1.3 cm. Isthmus is 0.6 cm thick. Echotexture is homogeneous. Nodule number: 1 Location: Right inferior Size: 1.7 x 1.4 x 0.8 cm Composition: Solid Echogenicity: Isoechoic Shape: wider than tall. Margins: Smooth Echogenic foci: Focal comet tail artifact Total points: 3 ACR TI-RADS category: Mildly suspicious IMPRESSION: Right-sided nodule has minimally increased in size. Recommend continued ultrasound follow-up. ACR TI-RADS definitions and recommendations: TI-RADS 1 (benign): 0 points. FNA not needed. TI-RADS 2 (not suspicious): 2 points. FNA not needed. TI-RADS 3: 3 points. * FNA if 2.5 cm or larger, follow up if 1.5 cm or larger (at 1, 3, and 5 years). TI-RADS 4: 4-6 points. * FNA if 1.5 cm or larger, follow up if 1 cm or larger (at 1, 2, 3, and 5 years). TI-RADS 5: 7 points or more. * FNA if 1 cm or larger, follow up if 0.5 cm or larger (every year for 5 years). Approved by: Indra Alcala M.D. on 01/17/2025 at 20:42
== END ==
PROVIDERS: PCP Physician Assistant; Referring Provider Physician Assistant; Visit Provider Physician Assistant
DX: E04.1 Nontoxic single thyroid nodule (principal); Z80.8 Family history of malignant neoplasm of other organs or systems
CPT/HCPCS: 76536

== ENCOUNTER → 2025-08-21 10:38 | Outpatient (CLI) | payer OTHER, SELFPAY ==
--- NOTE | 2025-08-21 10:39 | DI.MG.S_ITS ---
MM screening mammo BI: 08/21/2025. BI-RADS: 1 CLINICAL: 45-year old female for bilateral screening mammogram. Tyrer-Cuzick lifetime risk of 12.3%. No personal or first-degree family history of breast cancer. Current reported family history of breast cancer: paternal aunt. History of ovarian cancer in one first-degree relative. PRIOR EXAMS 04/12/2024, 11/02/2022. MAMMOGRAPHY TECHNIQUE: 2D and 3D (tomosynthesis) digital mammographic views obtained, with additional images as needed for full coverage. Current study was also evaluated with a Computer Aided Detection (CAD) system. DENSITY B. There are scattered areas of fibroglandular density. MAMMOGRAPHY FINDINGS Bilateral: No suspicious mass, asymmetry, microcalcification, or other abnormality seen. IMPRESSION: * No evidence of malignancy. RECOMMENDATIONS Bilateral * Annual screening mammography. OVERALL ASSESSMENT CATEGORY BI-RADS-1: Negative. [employer] recommends annual screening mammography beginning at age 40 for women with average risk of breast cancer. ELECTRONICALLY SIGNED: Sujata Rahman M.D. on 08/21/2025 at 05:14:01 PM PT Interpreting Station ID: [id number]
== END ==
LOC: MAMMO 10:39
PROVIDERS: PCP Physician Assistant; Referring Provider Physician Assistant; Visit Provider Physician Assistant
DX: Z12.31 Encounter for screening mammogram for malignant neoplasm of breast (principal); Z80.3 Family history of malignant neoplasm of breast; Z80.41 Family history of malignant neoplasm of ovary
CPT/HCPCS: 77063; 77067

== ENCOUNTER → 2025-09-11 13:07 | Outpatient (CLI) | payer OTHER, SELFPAY ==
[2025-09-11 18:52] LABS: Add Manual Diff / Slide Review NO; Hematocrit 43.8 % (36-46); Hemoglobin 14.6 g/dL (12.0-16.0); Lymphocytes Absolute Auto 1600 /uL (1100-4500); Mean Corpuscular HGB Conc 33.3 % (30-36); Mean Corpuscular Hemoglobin 27.8 PG (26-34); Mean Corpuscular Volume 83.4 fL (80-100); Platelet Count 291 X10^3/uL (150-400)
[2025-09-11 19:12] LABS: Alanine Aminotransferase 26 IU/L (<35); Albumin 4.4 g/dL (3.5-5.0); Albumin Globulin Ratio 1.7 (1.0-2.8); Alkaline Phosphatase 85 U/L (38-126); Globulin 2.6 g/dL (1.7-4.1); HEMOLYSIS < 15 (0-50); Total Protein 7.0 g/dL (6.3-8.2)
[2025-09-11 19:26] LABS: Free T3, Triiodothyronine Free 4.67 pg/mL (2.77-5.27); Free T4, Direct Thyroxine 1.47 ng/dL (0.78-2.19)
[2025-09-11 19:40] LABS: Thyroid Stimulating Hormone 1.43 uIU/mL (0.47-4.68)
== END ==
PROVIDERS: PCP Physician Assistant; Visit Provider Student in an Organized Health Care Education/Training Program
DX: E04.1 Nontoxic single thyroid nodule (principal)
CPT/HCPCS: 80076; 84439; 84443; 84445; 84481; 85025

== ENCOUNTER → 2025-11-10 11:55 | Outpatient (CLI) | payer OTHER, SELFPAY ==
[2025-11-10 18:54] LABS: Add Manual Diff / Slide Review NO; Hematocrit 42.1 % (36-46); Hemoglobin 14.1 g/dL (12.0-16.0); Lymphocytes Absolute Auto 2000 /uL (1100-4500); Mean Corpuscular HGB Conc 33.4 % (30-36); Mean Corpuscular Hemoglobin 27.5 PG (26-34); Mean Corpuscular Volume 82.5 fL (80-100); Platelet Count 296 X10^3/uL (150-400)
[2025-11-10 19:05] LABS: Alanine Aminotransferase 25 IU/L (<35); Albumin 4.3 g/dL (3.5-5.0); Albumin Globulin Ratio 1.7 (1.0-2.8); Alkaline Phosphatase 78 U/L (38-126); Globulin 2.6 g/dL (1.7-4.1); HEMOLYSIS < 15 (0-50); Total Protein 6.9 g/dL (6.3-8.2)
[2025-11-10 19:29] LABS: Free T3, Triiodothyronine Free 4.12 pg/mL (2.77-5.27); Free T4, Direct Thyroxine 1.33 ng/dL (0.78-2.19)
[2025-11-10 19:42] LABS: Thyroid Stimulating Hormone 1.92 uIU/mL (0.47-4.68)
== END ==
PROVIDERS: PCP Physician Assistant; Referring Provider Student in an Organized Health Care Education/Training Program; Visit Provider Student in an Organized Health Care Education/Training Program
DX: E04.1 Nontoxic single thyroid nodule (principal)
CPT/HCPCS: 80076; 84439; 84443; 84445; 84481; 85025